=== PATIENT | female | born 1970 | race Caucasian/White ===

== ENCOUNTER → 2017-12-14 | Outpatient (CLI) | payer BC ==
--- NOTE | 2017-12-14 14:33 | Diagnostic Imaging Report ---
EXAMINATION: MRI of the lumbar spine without contrast HISTORY: Low back pain radiating to lower extremities with numbness for the last 4 days, sacrococcygeal pain COMPARISON: None. TECHNIQUE: Sagittal T1, T2, STIR; axial T2 and proton density. FINDINGS: It is assumed that there are 5 lumbar vertebrae. Curvature/Alignment: Normal lordosis. Vertebrae: No evidence of recent fracture, infection, or neoplasm. Conus: Normal, terminating at T12-L1 Cauda equina: Unremarkable. Lower thoracic: Unremarkable. Paraspinal soft tissues: Unremarkable. Degenerative changes: L1-L2: Unremarkable. L2-L3: Unremarkable. L3-L4: Mild asymmetric to the right disc for which with a small right posterolateral/foraminal 2 mm disc protrusion and annular fissuring. No significant foraminal stenosis and no evidence of nerve root compression. L4-L5: Minimal asymmetric to the left disc bulge with a small left posterolateral/foraminal 2 mm disc protrusion and underlying annular fissuring. Mild facet arthrosis. No stenosis or nerve root compression. L5-S1: Mild symmetric disc pole which than facet arthrosis. No significant canal or foraminal stenosis. Sacroiliac joints: Unremarkable. IMPRESSION: 1. No acute lumbar spine abnormalities. 2. Mild chronic degenerative changes from L3-4 to L5-S1 without significant spinal canal or foraminal stenosis. No evidence of nerve root compression. Signed by: Dr. Agustina Mueller M.D. on 12/14/2017 2:30 PM
== END ==
LOC: MRI 08:28
PROVIDERS: ATTEND Psychiatry & Neurology Neurology
DX: M53.3 Sacrococcygeal disorders, not elsewhere classified (principal)
CPT/HCPCS: 72148; 81025

== ENCOUNTER → 2018-05-11 | Day surgery (SDC) | payer BC ==
[~2018-05-11] MED LIST: FENTANYL CITRATE/PF 100MCG/2 ML INJ ONE; GLUCAGON FOR INJ 1 MG VIAL ONE; HYOSCYAMINE SULFATE 0.5 MG/ML AMP ONE; LANSOPRAZOLE30 MG PO; LIDOCAINE HCL 2% LOCAL INJ 5 ML SDV VIAL INJ ONE; MIDAZOLAM HCL 2 MG/2 ML VIAL ONE; PROPOFOL IV EMULSION 10 MG/ML 50 ML VIAL ONE
--- NOTE | 2018-05-11 13:00 | Operative Report ---
DATE OF PROCEDURE: May 11, 2018 REFERRING PHYSICIAN: Dr. Gilberto Kelley PROCEDURES PERFORMED 1. Esophagogastroduodenoscopy with biopsies. 2. Colonoscopy with polypectomy. INDICATIONS FOR EGD: Upper abdominal pain, heartburn, indigestion. INDICATIONS FOR COLONOSCOPY: Colorectal cancer screening. History of bright red blood per rectum. MEDICATION: Patient was done under MAC. Please see anesthesiologist's note. PROCEDURE: With the patient in the left lateral decubitus position, the flexible fiberoptic Olympus gastroscope was introduced into the esophagus under direct visualization without any difficulty. There was some patchy erythema noted in the distal esophagus. There was some nodularity noted at the GE junction, and that was biopsied. The scope was then advanced with ease into the stomach. Mucosa overlying the antrum and the body revealed some patchy erythema and mild to moderate edema, and biopsies were obtained and sent to stain for H. pylori. An extrinsic compression was noted against the antrum along the greater curvature. The pylorus was of normal contour and shape. It was intubated with ease, and the scope was advanced all the way to the 2nd portion of the duodenum. The scope was then withdrawn slowly. Mucosa overlying the proximal 2nd portion and the duodenal bulb appeared to be within normal limits. The scope was then withdrawn back into the stomach and retroflexed, and mucosa overlying the fundus and the cardia appeared to be within normal limits. The scope was then straightened out. Stomach was decompressed. Scope was subsequently withdrawn. Patient tolerated the procedure well. IMPRESSION 1. Distal esophagitis. 2. Gastroesophageal junction was somewhat nodular, biopsied. 3. Gastritis, biopsied. Biopsy sent to stain for H. pylori. 4. Extrinsic compression, antrum greater curvature. PLAN: Follow up histology. Initiate Protonix 40 mg 1 p.o. q.a.m. a.c. Patient will need a CT of the abdomen and pelvis. The patient was then turned around. After adequate lubrication of the anal canal, a flexible fiberoptic Olympus colonoscope was inserted into the rectum with ease and advanced all the way to the cecum. It was then withdrawn slowly. Mucosa overlying the cecum, ascending colon, and transverse colon appeared to be within normal limits. One polyp was snared from the descending colon. Approximately 6 polyps were snared from the sigmoid colon. ASSESSMENT 1. Approximately 6 polyps were snared from the sigmoid colon. 2. Large, approximately 3 cm, pedunculated polyp, sigmoid colon, removed per snare electrocautery, and polypectomy site was hemoclipped times 3 and tattooed. 3. Rectal polyps x13, 6 snared and 7 hot biopsied. 4. Internal hemorrhoids, none actively bleeding. PLAN: Follow up histology. Initiate high-fiber, low-fat diet. Initiate high-fiber supplement. Timing of followup colonoscopy pending pathology report. Job#: [id number] cc:GILBERTO KELLEY DO
== END | disposition home or self-care (01) ==
LOC: OR 07:04
PROVIDERS: ATTEND Internal Medicine Gastroenterology
DX: K29.70 Gastritis, unspecified, without bleeding (principal); D12.5 Benign neoplasm of sigmoid colon; D12.8 Benign neoplasm of rectum; K22.8 Other specified diseases of esophagus; K20.9 Esophagitis, unspecified; K31.89 Other diseases of stomach and duodenum; K64.8 Other hemorrhoids; M19.90 Unspecified osteoarthritis, unspecified site; F17.210 Nicotine dependence, cigarettes, uncomplicated; Z01.810 Encounter for preprocedural cardiovascular examination; Z68.35 Body mass index [BMI] 35.0-35.9, adult; Z85.05 Personal history of malignant neoplasm of liver
CPT/HCPCS: 43239; 45381; 45384; 45385; 93005; J1610; J1980; J2001; J2250; 44391

== ENCOUNTER → 2018-05-16 | Outpatient (CLI) | payer BC ==
[~2018-05-16] MED LIST changes: -FENTANYL CITRATE/PF 100MCG/2 ML INJ ONE; -GLUCAGON FOR INJ 1 MG VIAL ONE; -HYOSCYAMINE SULFATE 0.5 MG/ML AMP ONE; +IOPAMIDOL 370 MG/ML 200 ML INFUS..BTL INJ ONE; -LIDOCAINE HCL 2% LOCAL INJ 5 ML SDV VIAL INJ ONE; -MIDAZOLAM HCL 2 MG/2 ML VIAL ONE; -PROPOFOL IV EMULSION 10 MG/ML 50 ML VIAL ONE; +SODIUM CHLORIDE 0.9% 50ML 50 ML ONE
--- NOTE | 2018-05-16 16:03 | Diagnostic Imaging Report ---
PROCEDURE: CT ABDOMEN AND PELVIS WITH CONTRAST TECHNIQUE: The abdomen and pelvis were scanned utilizing a multidetector helical scanner from the diaphragm to the lesser trochanter after the IV administration of 100 cc of Isovue 370 and the oral administration of water. Coronal and sagittal multiplanar reformations were obtained. COMPARISON: Patients [facility], CT, CT ABDOMEN/PELVIS WOW, 08/11/2015, 9:47. INDICATIONS: ABDOMEN PAIN, prior right hepatectomy FINDINGS: LOWER THORAX: Stable linear scarring in the lingula (series 2 image 2). Lung bases are otherwise clear. HEPATOBILIARY: Stable postoperative changes of right hepatectomy. Compensatory enlargement of the right hepatic lobe. Diffuse hepatic steatosis. No focal lesions. No biliary ductal dilation. The gallbladder is absent. SPLEEN: Mild splenomegaly, measuring 14 cm in AP diameter. PANCREAS: No focal masses or ductal dilatation. ADRENALS: Right adrenal gland is not clearly visualized and may be absent. Left internal gland is unremarkable. KIDNEYS/URETERS: No hydronephrosis, stones, or solid mass lesions. PELVIC ORGANS/BLADDER: Bladder is unremarkable. 4.4 x 4.7 x 4.3 cm soft tissue mass in the posterior uterine body, which previously measured approximately 3.3 x 2.8 x 2.3 cm (series 2, image 77 and sagittal image 64). No adnexal masses. Prominent bilateral gonadal veins are again noted. PERITONEUM / RETROPERITONEUM: No free air or fluid. LYMPH NODES: No lymphadenopathy. VESSELS: Celiac trunk, superior and inferior mesenteric, and bilateral renal arteries are patent. Portal, superior mesenteric, and splenic veins are patent. Atherosclerotic calcification of the infrarenal abdominal aorta and iliac vessels. GI TRACT: No bowel dilation or evidence of obstruction. No pericolonic inflammatory changes. Appendix is normal in caliber. Stomach is unremarkable. BONES AND SOFT TISSUES: No aggressive lytic lesions. Slight interval increase in size of focal supraumbilical diastases of the recti muscles, which measures approximately 5.4 x 2.1 x 4.2 cm (series 2, image 30, and sagittal image 72), and previously measured approximately 4.3 x 1.1 x 3.9 cm. IMPRESSION: 1. No acute abdominopelvic abnormalities. 2. Stable postoperative changes of right hepatectomy, without focal lesions. Diffuse hepatic steatosis. 3. Stable mild splenomegaly. 4. Interval increase in size of uterine fibroid. Persistent prominent bilateral gonadal veins. This may be secondary to pelvic congestion, which can be a cause of pelvic pain. Viktor Puckett M.D. Dictated by: Viktor Puckett M.D. on 05/16/2018 at 16:08 Electronically approved by: Viktor Puckett M.D. on 05/16/2018 at 16:08
== END ==
LOC: CT 12:36
PROVIDERS: ATTEND Internal Medicine Gastroenterology
DX: Z12.11 Encounter for screening for malignant neoplasm of colon (principal); R13.10 Dysphagia, unspecified; R10.9 Unspecified abdominal pain
CPT/HCPCS: 74177; Q9967

== ENCOUNTER → 2018-06-09 | Outpatient (CLI) | payer BC ==
[~2018-06-09] MED LIST changes: -IOPAMIDOL 370 MG/ML 200 ML INFUS..BTL INJ ONE; -SODIUM CHLORIDE 0.9% 50ML 50 ML ONE
--- NOTE | 2018-06-09 13:31 | Diagnostic Imaging Report ---
EXAM: Transabdominal and Transvaginal Pelvic Ultrasound INDICATION: \[id number] \S\1024 \S\FIBROIDS UTERUS COMPARISON: None TECHNIQUE: Grayscale transverse and sagittal transabdominal and transvaginal images were obtained of the pelvis. Transvaginal imaging was medically necessary to better evaluate the endometrium and the adnexa. CLINICAL HISTORY: 48 year old A0; last menstrual period: Unknown. FINDINGS: Uterus Orientation: Normal Size: 10.1 x 6.8 x 6.7 cm, Normal Mass: Anterior fundal 4.2 x 4.3 x 5.1 cm heterogeneously hyperechoic to hypoechoic fibroid. This measured approximately 5.[address] 05/16/2018 and 2.9 cm on 08/11/2015. Cervix: Normal Endometrium: Thickness: 0.6 cm, Normal. Appearance: Homogeneous echotexture without focal thickening. Right ovary: Size: 2.7 x 1.9 x 2.3 cm Mass/Cyst: None Left ovary: Size: 2.7 x 2.1 x 1.7 cm Mass/Cyst: None Adnexa: Normal Cul-de-sac: No free fluid IMPRESSION: Stable size of an anterior fibroid compared to 05/16/2018, slowly increased in size form 2013. Homogeneously hypoattenuating appearance on CT 05/16/2018 may reflect degeneration. Heterogeneity with hyperechoic areas, although rare, could possibly reflect fatty degeneration. Signed by: DR. Saran Shine MD on 06/09/2018 1:28 PM
== END ==
LOC: US 09:59
PROVIDERS: ATTEND Obstetrics & Gynecology
DX: D25.9 Leiomyoma of uterus, unspecified (principal)
CPT/HCPCS: 76830

== ENCOUNTER → 2018-07-12 | Day surgery (SDC) | payer BC ==
[~2018-07-12] MED LIST changes: +FENTANYL CITRATE/PF 100MCG/2 ML INJ ONE; +HYOSCYAMINE SULFATE 0.5 MG/ML AMP ONE; +LIDOCAINE HCL 2% LOCAL INJ 5 ML SDV VIAL INJ ONE; +MIDAZOLAM HCL 2 MG/2 ML VIAL ONE; +ONDANSETRON HCL INJ 2 MG/ML VIAL ONE; +PROPOFOL IV EMULSION 10 MG/ML 50 ML VIAL ONE
[2018-07-12 09:30] VITALS: BP 112/79
--- NOTE | 2018-07-12 10:26 | Operative Report ---
DATE OF PROCEDURE: July 12, 2018 REFERRING PHYSICIAN: Dr. Gilberto Kelley PROCEDURE PERFORMED: Colonoscopy to approximately 60 cm from the anal verge. The scope could not be advanced any further secondary to the presence of a large amount of retained fecal material. INDICATIONS FOR PROCEDURE: History of large polypoid mass, sigmoid colon, status post resection per snare electrocautery, history of multiple colon and rectal polyps. MEDICATION: Patient was done under MAC. Please see anesthesiologist's note. PROCEDURE: With the patient in the left lateral decubitus position, the flexible fiberoptic Olympus colonoscope was inserted into the rectum with ease advanced and all the way to approximately 60 cm from the anal verge. The scope was not advanced any further secondary to the presence of a large amount of retained fecal material. The scope was then withdrawn slowly and 2 polyps were snared from the descending colon. A total of 18 polyps were hot biopsied from the sigmoid colon, and 2 polyps were snared from the sigmoid colon. The site of the previous sigmoid colon mass resection was identified as it was tattooed. Two residual polypoid lesions were removed per snare electrocautery and the site was hemoclipped. One polyp was hot biopsied from the rectum. The scope was then retroflexed into the distal rectum and small internal hemorrhoids were noted, none of which was actively bleeding. The scope was then straightened out. The scope was subsequently withdrawn. Patient tolerated the procedure well. A total of 23 polyps in addition to the residual polypoid tissue from the previous sigmoid colon mass were removed. Patient satisfies the criteria for hyper-polyposis syndrome. IMPRESSION 1. Poor prep. 2. Colonoscopy to approximately 60 cm from the anal verge. 3. Descending colon polyps times 2, hot biopsied. 4. Sigmoid colon polyps, 2 snared and 18 hot biopsied. 5. Residual tissue at the previously described sigmoid colon mass was removed per snare electrocautery times 2. Site was hemoclipped. 6. Rectal polyp times 1, hot biopsied. 7. Internal hemorrhoids, none actively bleeding. PLAN: Follow up histology. As noted above, the patient meet the criteria for hyper-polyposis syndrome. She has a significant risk for colon cancer. With need manual screening. Job#: [id number] RI cc:GILBERTO KELLEY DO
== END | disposition home or self-care (01) ==
LOC: OR 05:45
PROVIDERS: ATTEND Internal Medicine Gastroenterology
DX: K92.1 Melena (principal); K63.5 Polyp of colon; K62.1 Rectal polyp; K63.89 Other specified diseases of intestine; K64.8 Other hemorrhoids; K59.00 Constipation, unspecified; K21.9 Gastro-esophageal reflux disease without esophagitis; F17.210 Nicotine dependence, cigarettes, uncomplicated; Z85.05 Personal history of malignant neoplasm of liver
CPT/HCPCS: 45384; 45385; J1980; J2001; J2250; J2405; 45378

== ENCOUNTER → 2019-07-19 | Day surgery (SDC) | payer BC ==
[~2019-07-19] MED LIST changes: +GLUCAGON FOR INJ 1 MG VIAL ONE; +HYOSCYAMINE 0.125 MG TAB ONE; -HYOSCYAMINE SULFATE 0.5 MG/ML AMP ONE; -LIDOCAINE HCL 2% LOCAL INJ 5 ML SDV VIAL INJ ONE; -ONDANSETRON HCL INJ 2 MG/ML VIAL ONE; +PREVACID30 MG PO
--- OUTSIDE RECORDS SUMMARY | 2019-07-19 09:14 | XMS REPORT | Clinical Summary ---
Author Author [facility] Address Unknown Phone Unavailable Care Team Providers Care Manager Body Name Role Phone Sukhdev Orellana DO PCP Allergies No Known Allergies Medications End Date Status Medication Sig Dispensed Refills Start Date Active HYDROcodone-acetaminophen Take 15 mLs 420 mL 0 (LORTAB) 7.5 mg-325 mg by mouth 4 /15 mL (15 mL) Soln every 6 (six) solution hours as needed. Active Problems Problem Noted Date Fatty liver 12/30/2016 History of resection of liver 03/26/2014 Liver mass 03/06/2014 Tobacco abuse 03/04/2014 Last Assessment & Plan: She is a 30 pack year smoker. Discussed stopping smoking immediately. CXR and PFTs prior to surgery. Preoperative clearance 03/04/2014 Liver mass, right lobe 02/28/2014 Last Assessment & Plan: She has an MRI that shows right hepatic lobe Segments -VII 7.7 X 7.7 X 9.6 cm multiseptated mass. We will need to check blood tests and blood tests for tumor markers. We will need to check her immunity status. She has provided us with a CD of her imaging. We will review her imaging with Dr. Hernandez and radiology, for surgical evaluation. There is a possibility that this mass is benign, however it will require surgical evaluation for resection. We do not recommend a biopsy of the mass is cystic and will cause leakage of fluid/cells. Hilar lymphadenopathy 02/28/2014 Last Assessment & Plan: There is concern for malignancy as patient has imaging with 7.7 X 7.7 X 9.6 cm multiseptated mass in right hepatic lobe Segments -VII. We will evaluate with blood tumor markers and will review imaging with surgery and radiology for possible resection. Obesity 02/28/2014 Last Assessment & Plan: Her BMI is 30.49, we have recommend weight loss and lifestyle modifications. Immunity status testing 02/28/2014 Last Assessment & Plan: We will check immunity status of the patient today. Anemia 02/28/2014 Last Assessment & Plan: She has had a history of iron deficiency anemia. We defer management for her PCP Encounters Care Team Description Date Type Specialty Arielle Nichols RN 10/05/2018 Abstract Hepatology after 07/18/2018 Family History Medical History Relation Name Comments Hyperlipidemia Father Hypertension Father Cancer Mother Relation Name Status Comments Brother Alive Father Alive Mother Alive Social History Date Tobacco Use Types Packs/Day Years Used Current Every Day Smoker Comments: smoking 27 years Alcohol Use Drinks/Week oz/Week Comments Yes 1-2 Standard 0.5 - 1.0 drinks or equivalent Sex Assigned at Date Recorded Not on file Industry Job Start Date Occupation Not on file Not on file Not on file Travel End Travel History Travel Start No recent travel history available. Last Filed Vital Signs Not on file Plan of Treatment Health Maintenance Due Date Last Done Comments INFLUENZA VACCINE 07/31/2018 Implants Device Identifier Shelf Expiration Date Model / Serial / Lot Implanted Type Area Manufactur er 07/30/2015 [id number] / [id number] / [id number] Clayton Set,Tisseel - [id number] [employer] N/A: Abdomen Implanted: Qty: 1 on 03/06/2014 by fabricio/René Maciel MD ve Results Not on fileafter 07/18/2018 Insurance Payer Benefit Subscriber ID Type Phone Address Plan / Group BLUE CROSS/BLUE [employer] BCBS OS xxxxxxxxxxxx PPO [phone] [address] POS/PPO/[place] [address] O Advance Directives For more information, please contact: [facility] [address] [place] [address] Date Inactivated Comments Code Status Date Activated 03/17/2014 6:11 PM All possible means of support, including: cardiac massage, mechanical ventilation, and defibrillation will be used to support life. Code ONE 03/06/2014 12:34 PM 03/06/2014 12:34 PM All possible means of support including;cardiac massage, mechanical ventilation, and defibrillation will be used to support life. Code ONE 03/06/2014 6:21 AM
--- OUTSIDE RECORDS SUMMARY | 2019-07-19 09:14 | XMS REPORT ---
Author Author Admin, [place] Organization [employer] Address [facility] [address] Phone Allergies, Adverse Reactions, Alerts Allergy Name Reaction Description Start Date Severity Status Provider No Known Allergies Ellie Avalos MA Conditions or Problems Problem Name Problem Code Onset Date Status Entry Date Provider Comment Standard Description Annotate Amenorrhea, secondary 626.0 Active Solomon Perez MD Absence of menstruation Cervix, screening for malignant neoplasm V76.2 Active Solomon Perez MD Screening for malignant neoplasms of the cervix Fibroids, uterus 218.9 Active Solomon Perez MD Leiomyoma of uterus, unspecified Glass Inspector annual exam V72.3 Active Solomon Perez MD Special investigations and examinations - Gynecological examination Medication List Medication Instructions Start Date Stop Date Generic Name NDC Status Provider Patient Instruction Drug Treatment Unknown - unknown Vital Signs Date Name Value Unit Range Description blood pressure, diastolic 73 mm[Hg] BP nevarez blood pressure, systolic 119 mm[Hg] BP sys height E&M 66 [in_us] Bdy height respiratory rate E&M 17 /min Resp rate temperature E&M 98.4 [degF] Body temperature weight E&M 217.50 [lb_av] Weight Measured Diagnostic Results Date Name Value Unit Range Description Lab Report: FSH, Serum, TSH Rfx on Abnormal to Free T4 - Chemistry thyroid stimulating hormone, serum 0.949 u[iU]/mL 0.450-4.500 follicle stimulating hormone, serum 29.7 m[iU]/mL Procedures Code Procedure Name Date Entry Date Standard Description CPT-82450 New Patient Well Exam (40 - 64 Yrs) - [address] 11:15:11 CDT
[2019-07-19 13:45] VITALS: BP 112/84
--- NOTE | 2019-07-19 20:20 | Operative Report ---
DATE OF PROCEDURE: 07/19/2019 SURGEON: Gianluca Rosas MD PROCEDURES: EGD with biopsies and colonoscopy with polypectomy. INDICATIONS FOR EGD: Upper abdominal pain, heartburn. INDICATION FOR COLONOSCOPY: Poor prep on previous colonoscopy, history of colon polyps. MEDICATIONS: The patient was done under MAC, please see anesthesiologist's note. PROCEDURE IN DETAIL: With the patient in left lateral decubitus position, a flexible fiberoptic Olympus gastroscope was introduced into the esophagus under direct visualization without any difficulty. There was some patchy erythema noted in distal esophagus. A focal nodularity was noted at the GE junction that was biopsied. The scope was then advanced with ease into the stomach. Mucosa overlying the antrum and the body revealed some diffuse erythema and [id number] edema, and biopsies were obtained and sent to stain for H. pylori. An extrinsic compression was noted against the greater curvature, distal body as well as the antrum. The pylorus was intubated with ease and the scope was advanced all the way to the second portion of the duodenum. The scope was then withdrawn slowly. Mucosa overlying the proximal second portion and duodenal bulb grossly appeared to be within normal limits. Biopsies were obtained to rule out sprue. The scope was then withdrawn back into the stomach and retroflexed, and mucosa overlying the fundus and the cardia appeared to be within normal limits. The scope was then straightened out, it was subsequently withdrawn, and the patient tolerated the procedure well. IMPRESSION: 1. Distal esophagitis, mild. 2. Focal nodularity, GE junction, biopsied. 3. Gastritis, biopsied, biopsies sent to stain for Helicobacter pylori. 4. Extrinsic compression distal body, antrum, greater curvature. 5. Rule out sprue. PLAN: Follow up histology. Increase lansoprazole to 30 mg one p.o. before meals b.i.d. The patient was then turned around and after adequate lubrication of the anal canal, a flexible fiberoptic Olympus colonoscope was inserted into the rectum with ease and advanced all the way to the cecum. A minute polyp was removed per cold biopsy forceps from the cecum. The ascending colon appeared to be within normal limits. One polyp was snared from the transverse colon. The descending colon appeared to be within normal limits. One polyp was snared from the sigmoid colon and 5 polyps were hot biopsied from the sigmoid colon. Resection site of large polypoid mass was extensively biopsied. The rectum appeared to be within normal limits. The scope was then retroflexed into the distal rectum and small internal hemorrhoids were noted, none of which was actively bleeding. The scope was then straightened out, it was subsequently withdrawn, and the patient tolerated the procedure well. IMPRESSION: 1. Cecal polyp, removed per cold biopsy forceps. 2. Transverse colon polyp snared. 3. Diverticulosis, minimal. 4. Site of resection of large polypoid mass, sigmoid colon, extensively biopsied. 5. Sigmoid colon polyps x6, one snared and 5 hot biopsied. 6. Internal hemorrhoids, none actively bleeding. PLAN: Follow up histology. Initiate high-fiber, low-fat diet. Initiate high-fiber supplement. MD SHARON Delgadillo/JUN /[id number] cc: Roddy Orellana DO
== END | disposition home or self-care (01) ==
LOC: OR 09:11
PROVIDERS: ATTEND Internal Medicine Gastroenterology
DX: K20.9 Esophagitis, unspecified (principal); K29.70 Gastritis, unspecified, without bleeding; R11.0 Nausea; K63.5 Polyp of colon; K57.30 Diverticulosis of large intestine without perforation or abscess without bleeding; K64.8 Other hemorrhoids
CPT/HCPCS: 43239; 45380; 45384; 45385; J1610; J2250; J2704; J3010

== ENCOUNTER → 2025-02-07 | Day surgery (SDC) | payer BC ==
[~2025-02-07] MED LIST changes: +ALBUTEROL 90 MCG/ACT INHALER INH ONE; +GLYCOPYRROLATE INJ 0.2 MG/ML VIAL ONE; -HYOSCYAMINE 0.125 MG TAB ONE; +HYOSCYAMINE SULFATE 0.5 MG/ML INJ ONE; +LIDOCAINE HCL 2% LOCAL INJ 5 ML SDV VIAL INJ ONE; +METOCLOPRAMIDE HCL 10 MG/2ML VIAL ONE; -MIDAZOLAM HCL 2 MG/2 ML VIAL ONE; +OZEMPIC0.25 MG/02; +PROPOFOL IV EMULSION 10 MG/ML 20 ML VIAL ONE; -PROPOFOL IV EMULSION 10 MG/ML 50 ML VIAL ONE; +PROPOFOL IV EMULSION 50 ML IV ONE
[2025-02-07] MEDS: LACTATED RINGER'S 1,000 ML ONE (06:42)
[2025-02-07 09:01] VITALS: TEMP 97.7
[2025-02-07 09:35] VITALS: BP 126/82; PULSE 96; RESP 18; O2SAT 98
[2025-02-07 10:26] LABS: CDIFF AG QUIK CHEK NEGATIVE (NEGATIVE); CDIFF TOX QUIK CHEK NEGATIVE (NEGATIVE)
[2025-02-08 06:15] LABS: C-REACTIVE PROTEIN 5 mg/L (0-10)
[2025-02-16 11:11] LABS: ENDOMYSIAL ANTIBODIES, IGA Negative (Negative)
[2025-02-17 14:16] LABS: IMMUNOGLOBULIN A 175 mg/dL (87-352); TISSUE TRANSGLUTAMINASE IGA AB <2 U/mL (0-3)
== END | disposition home or self-care (01) ==
LOC: OR 06:04
PROVIDERS: ATTEND Internal Medicine Gastroenterology
DX: K21.9 Gastro-esophageal reflux disease without esophagitis (principal); D12.5 Benign neoplasm of sigmoid colon; D13.2 Benign neoplasm of duodenum; D13.0 Benign neoplasm of esophagus; K29.70 Gastritis, unspecified, without bleeding; K52.9 Noninfective gastroenteritis and colitis, unspecified; K59.00 Constipation, unspecified; K20.90 Esophagitis, unspecified without bleeding; K63.89 Other specified diseases of intestine; K31.89 Other diseases of stomach and duodenum; K57.30 Diverticulosis of large intestine without perforation or abscess without bleeding; K62.89 Other specified diseases of anus and rectum; K64.8 Other hemorrhoids; K76.0 Fatty (change of) liver, not elsewhere classified; F17.200 Nicotine dependence, unspecified, uncomplicated; Z79.85 Long-term (current) use of injectable non-insulin antidiabetic drugs
CPT/HCPCS: 36415; 43239; 43251; 45380; 45385; 82784; 82948; 83516; 83630; 83993; 86140; 86256; 87045; 87177; 87324; 87328; 87449; 93005; J1610; J1980; J2003; J2470; J2704 ×2; J2765; J3010; J7121; 45378